=== PATIENT | male | born 1970 | race Caucasian/White ===

== ENCOUNTER → 2016-08-21 | Outpatient (CLI) | payer BC ==
[~2016-08-21] MED LIST: ENBIUNK; NXMUNK; PRDUNK; [UNRECOGNIZED DRUG - OTHER]
== END | disposition home or self-care (01) ==
LOC: C.LABBC 13:24
PROVIDERS: ATTEND Internal Medicine Gastroenterology
DX: R74.0 Nonspecific elevation of levels of transaminase and lactic acid dehydrogenase [LDH] (principal)

== ENCOUNTER → 2016-08-28 | Outpatient (CLI) | payer BC ==
--- NOTE | 2016-08-28 15:50 | DIAGNOSTIC IMAGING REPORT ---
LEFT HAND MIN 3 VIEWS ROUTINE HISTORY: 45 years-old Male S69.92XA Injury of left hand, initial encounter COMPARISON: None available TECHNIQUE: 3 views of the left hand FINDINGS: Mild first carpometacarpal degenerative changes are noted. There is no acute fracture, dislocation or other significant degenerative changes identified. Soft tissues are within normal limits without radiopaque foreign body. IMPRESSION: 1. No acute fracture or dislocation. 2. Mild first carpometacarpal osteoarthritis. The above report was generated using voice recognition software. It may contain grammatical, syntax or spelling errors. Electronically signed by: Amadeo Christensen M.D. 08/28/2016 3:49 PM Dictated Date/Time: 08/28/2016 3:48 PM
== END | disposition home or self-care (01) ==
LOC: C.RAD1850 15:33
PROVIDERS: ATTEND Internal Medicine
DX: S69.92XA Unspecified injury of left wrist, hand and finger(s), initial encounter (principal); X58.XXXA Exposure to other specified factors, initial encounter

== ENCOUNTER → 2017-08-24 | Outpatient (CLI) | payer BC | END | disposition home or self-care (01) | LOC: C.LAB1850 10:57 | PROVIDERS: ATTEND Internal Medicine Gastroenterology | DX: R74.0 Nonspecific elevation of levels of transaminase and lactic acid dehydrogenase [LDH] (principal) ==